=== PATIENT | female | born 1995 | race American Indian/Alaskan Native ===

== ENCOUNTER 2018-05-02 21:16 | Emergency (ER) | payer SELFPAY ==
[2018-05-02 21:47] VITALS: BP 113/68; PULSE 98; RESP 22; TEMP 98.1; O2SAT 98
[2018-05-02] MEDS ORDERED: Apap-Butalbital-Caffeine 325-50-40mg Tab PO STA (22:52)
[2018-05-02] MEDS ORDERED: Apap-Butalbital-Caffeine 325-50-40mg Tab ONE (22:57)
--- NOTE | 2018-05-02 23:42 | C.PDOC ---
History Of Present Illness 22 year old female with PMHx of migraines presents to the ED c/o headache that started this morning. Patient states he was on medications for her migraines but stopped taking them once she moved to [place]. Patient took 2 Advil [employer]. Patient is c/o nausea and photophobia. Patient reports headache feels similar to previous migraines in the past. Patient denies URI symptoms, fever, chills, dizziness, weakness, numbness. Time Seen by Provider: 05/02/18 21:59 Chief Complaint (Nursing): Headache History Per: Patient History/Exam Limitations: no limitations Onset/Duration Of Symptoms: Hrs Current Symptoms Are (Timing): Still Present Quality: "Pain" Preceeding Symptoms: Known Migraine Symptoms Associated Symptoms: Photophobia, Nausea Recent travel outside of the [facility]: No Additional History Per: Patient Past Medical History Reviewed: Historical Data, Nursing Documentation, Vital Signs Vital Signs: Last Vital Signs Temp 98.1 F 05/02/18 21:43 Pulse 98 H 05/02/18 21:43 Resp 22 05/02/18 21:43 BP 113/68 05/02/18 21:43 Pulse Ox 98 05/02/18 23:44 - Medical History PMH: Migraine Surgical History: No Surg Hx Family History: States: Unknown Family Hx - Social History Hx Alcohol Use: No Hx Substance Use: No - Immunization History Hx Tetanus Toxoid Vaccination: No Hx Influenza Vaccination: No Hx Pneumococcal Vaccination: No Review Of Systems Constitutional: Negative for: Fever, Chills Eyes: Negative for: Vision Change Cardiovascular: Negative for: Chest Pain, Palpitations Respiratory: Negative for: Cough, Shortness of Breath Gastrointestinal: Positive for: Nausea. Negative for: Vomiting, Abdominal Pain Neurological: Positive for: Headache. Negative for: Weakness, Numbness, Dizziness Physical Exam - Physical Exam Appears: Non-toxic, No Acute Distress Skin: Normal Color, Warm, Dry Head: Atraumatic, Normacephalic Eye(s): bilateral: Normal Inspection, PERRL, EOMI Oral Mucosa: Moist Neck: Normal ROM, No Midline Cervical Tenderness, Supple Chest: Symmetrical Cardiovascular: Rhythm Regular Respiratory: Normal Breath Sounds, No Rales, No Rhonchi, No Wheezing Gastrointestinal/Abdominal: Soft, No Tenderness, No Guarding, No Rebound Extremity: Normal ROM, No Tenderness, No Swelling Neurological/Psych: Oriented x3, Normal Speech, Normal Cognition, Normal Motor, Normal Sensation Gait: Steady ED Course And Treatment O2 Sat by Pulse Oximetry: 98 (ON RA ) Pulse Ox Interpretation: Normal Progress Note: Plan: - Fioricet 2 tab PO. - reglan 10 mg PO. On reassessment , patient is resting comfortably, is tolerating PO, and pain has improved. Patient has no neurologic deficit, photophobia, rash, fever, or nuchal rigidity. Patient was instructed to follow up with physician/clinic in 1-2 days. Disposition Counseled Patient/Family Regarding: Diagnosis, Need For Followup, Rx Given - Disposition Referrals: [facility] at [facility] [Outside] Disposition: HOME/ ROUTINE Disposition Time: 23:40 Condition: STABLE Additional Instructions: Please follow up with PMD Take medications as directed Return to ER if worse Prescriptions: Acetaminophen/Butalbital/Caf [Fioricet] 1 tab PO TID PRN #20 tab PRN Reason: Headache Instructions: Migraine Headache (DC) Forms: [employer] (Kazakh) - Clinical Impression Clinical Impression: Headache, Migraine - PA / CONSUMER [employer]AF[employer] OFFICER / Resident Statement MD/DO has reviewed & agrees with the documentation as recorded. - Scribe Statement The provider has reviewed the documentation as recorded by the Scribe Blake Diallo All medical record entries made by the Scribe were at my direction and personally dictated by me. I have reviewed the chart and agree that the record accurately reflects my personal performance of the history, physical exam, medical decision making, and the department course for this patient. I have also personally directed, reviewed, and agree with the discharge instructions and disposition.
== END 2018-05-02 23:48 | disposition home or self-care (01) ==
LOC: C.ER 21:16
DX: G43.909 Migraine, unspecified, not intractable, without status migrainosus (principal)